=== PATIENT | male | born 1950 | race Caucasian/White ===

== ENCOUNTER → 2023-12-14 13:35 | Outpatient (REF) | payer MEDICARE, BC, SELFPAY | LOC: DHCBS HW 13:35 | PROVIDERS: ATTENDING PHYSICIAN Internal Medicine Cardiovascular Disease; FAMILY PHYSICIAN Family Medicine | DX: I25.10 Atherosclerotic heart disease of native coronary artery without angina pectoris (principal); I51.81 Takotsubo syndrome; I49.3 Ventricular premature depolarization | CPT/HCPCS: 93306 ==

== ENCOUNTER → 2025-01-16 11:46 | Outpatient (REF) | payer MEDICARE, BC, SELFPAY ==
[2025-01-16 12:17] LABS: % Basophils 0.3 % (0-2); % Eosinophils 3.6 % (0-6); % Immature Granulocytes 0.3 % (0-0.5); % Lymphocytes 21.2 % (20.5-51.1); % Monocytes 9.7 % (1.7-9.3); % Neutrophils 64.9 % (42.2-75.2); Absolute Eosinophils 0.3 10^3/uL (0-0.7); Absolute Lymphocytes 1.5 10^3/uL (1.2-3.4); Absolute Monocytes 0.7 10^3/uL (0.1-0.6); Absolute Neutrophils 4.5 10^3/uL (1.4-6.5); Hematocrit 38.4 % (39.0-52.0); Hemoglobin 12.9 g/dL (13.0-18.0); Mean Corp Hgb Conc. 33.6 g/dL (33.0-37.0); Mean Corpuscular Hgb 32.4 pg (27.0-31.0); Mean Corpuscular Volume 96.5 fL (80.0-94.0); Mean Platelet Volume 10.8 fL (7.4-10.4); Nucleated Red Blood Cells % 0 % (-); Platelet Count 154 10^3/uL (130-400); Red Blood Cell Count 3.98 10^6/uL (4.70-6.10); Red Cell Dist. Width 13.7 % (11.5-14.5); White Blood Cell Count 6.9 10^3/uL (4.8-10.8)
[2025-01-16 12:49] LABS: ALT (SGPT) 26 U/L (0-50); AST (SGOT) 26 U/L (17-59); Albumin 4.7 g/dl (3.5-5.0); Alkaline Phosphatase 50 U/L (38-126); Blood Urea Nitrogen 17 mg/dl (9-20); Carbon Dioxide 24 mmol/L (22-30); Chloride 109 mmol/L (98-107); Glucose 105 mg/dl (70-99); HDL Cholesterol 84 mg/dl; LDL Cholesterol, Calculated 46 mg/dl; Phosphorus 3.8 mg/dl (2.5-4.5); Potassium 5.2 mmol/L (3.5-5.1); Sodium 143 mmol/L (135-145); Total Bilirubin 0.3 mg/dl (0.2-1.3); Total Cholesterol 159 mg/dl (50-199); Total Protein 7.5 g/dl (6.3-8.2); Triglyceride 147 mg/dl (10-149); Uric Acid 6.8 mg/dl (3.5-8.5); Very Low Density Lipoprotein 29 mg/dl (0-30); eGFR > 60.00
[2025-01-16 12:52] LABS: Glycohemoglobin (HgbA1c) 5.2 % (4.0-5.6)
[2025-01-16 15:03] LABS: Microalbumin, Random Urine 4.1 mg/dl (0.6-1.7)
[2025-01-16 15:13] LABS: Urine Protein < 5 mg/dl (0-12)
[2025-01-16 15:22] LABS: PSA, Total - Diagnostic 5.58 ng/ml (0.0-4.0)
[2025-01-19 02:41] LABS: Albumin 4.27 g/dL (3.75-5.01); Alpha 1 Globulin 0.23 g/dL (0.19-0.46); Alpha 2 Globulin 0.76 g/dL (0.48-1.05); Free Kappa Light Chains,Quant 67.88 mg/L (3.30-19.40); Free Lambda Light Chains,Quant 16.72 mg/L (5.71-26.30); IgA 906 mg/dL (68-408); IgG 501 mg/dL (768-1632); IgM 78 mg/dL (35-263); Immunofixation Electrophoresis IFE Done; Kappa/Lambda Fr Light Ratio 4.06 (0.26-1.65); Monoclonal Protein 0.63 g/dL (<=0.00); Total Protein-Electrophoresis 7.2 g/dL (6.3-8.2)
== END ==
LOC: REG 11:46
PROVIDERS: ATTENDING PHYSICIAN Family Medicine
DX: E11.8 Type 2 diabetes mellitus with unspecified complications (principal); D64.9 Anemia, unspecified; D47.2 Monoclonal gammopathy; Z79.899 Other long term (current) drug therapy; E78.00 Pure hypercholesterolemia, unspecified; I10 Essential (primary) hypertension; Z12.5 Encounter for screening for malignant neoplasm of prostate; I25.10 Atherosclerotic heart disease of native coronary artery without angina pectoris; I51.81 Takotsubo syndrome; E66.9 Obesity, unspecified; R97.20 Elevated prostate specific antigen [PSA]
CPT/HCPCS: 36415; 80053; 80061; 82043; 82570; 82784; 83036; 83520; 83521; 84100; 84153; 84155; 84156; 84165; 84550; 85025; 86334; 86335